=== PATIENT | female | born 1990 | race Caucasian/White ===

== ENCOUNTER 2022-02-05 12:01 | Emergency (ER) | payer BC ==
[2022-02-05] MEDS: Albuterol/Ipratropium 3.0-0.5 MG/3 ML Neb Soln NEB ONE (12:10)
[2022-02-05 12:17] VITALS: BP 120/65; PULSE 99
[2022-02-05] MEDS: Albuterol 8 GM Inhaler INH ONE (13:30)
[2022-02-05] MEDS: Take Home: Cefuroxime 250 MG Tab, 2 Tab Pack PO ONE (13:30)
[2022-02-05] MEDS: BENZONATATE 100 MG PO ONE (13:31)
== END 2022-02-05 13:42 | disposition home or self-care (01) ==
LOC: CC.ED 12:01
DX: J40 Bronchitis, not specified as acute or chronic (principal); Z88.0 Allergy status to penicillin
CPT/HCPCS: 36415; 71046; 80053; 85025; 94640; 99284; A9270-GY; J7620-GY